=== PATIENT | male | born 1945 | race Caucasian/White ===

== ENCOUNTER 2016-10-16 11:30 | Outpatient (CLI) | payer OTHER ==
--- NOTE | 2016-10-16 13:15 | DIAGNOSTIC IMAGING REPORT ---
PROCEDURE: CT LOW-DOSE LUNG CA SCREENING CLINICAL INDICATION: HX LUNG CA TECHNIQUE: Low-dose helical CT images of the lungs without contrast were obtained and reconstructed at 2.5 mm intervals. MIP reformations in coronal and sagittal planes were created. Radiation dose 1.38 mGy. COMPARISON: Oldest available comparison: Chest x-ray 09/09/2016, 01/20/2016 and 06/07/2009 FINDINGS: NODULES: Location: Right middle lobe, image location: 71, size: 3.5 mm, composition: Ground glass Location: Right lower lobe, image location: 73, size: 5 mm, composition: Ground-glass Location: Right major fissure, image location: 93, size: 4 mm, composition ground-glass OTHER LUNG FINDINGS: Left upper lobectomy. Left basilar and left perihilar patchy alveolar opacities. AIRWAY: Right lower lobe bronchiectasis. There is also bronchial wall thickening suggestive of bronchitis. PLEURA: No effusions, thickening, or pneumothorax. AORTA AND GREAT VESSELS: Normal caliber, mild atherosclerotic calcification. PULMONARY ARTERIES: Normal. . HEART AND PERICARDIUM: Normal size without effusion, thickening. LYMPH NODES: No enlarged nodes visible. Moderate left hilar adenopathy. THORACIC SPINE: No suspicious lesion. Mild degenerative changes. CHEST WALL: Normal. Three small ground-glass right lung nodules VISUALIZED UPPER ABDOMEN: Normal. IMPRESSION: 1. Left upper lobectomy 2. Left basilar patchy densities. Prominent left hilar adenopathy suggests neoplastic changes but pneumonia is not completely excluded. Recommend follow- up CT scan with contrast in 1 month. Category 4B, suspicious. 3. Three small ground-glass right lung nodules, indeterminate. 4. Right lower lobe bronchiectasis and bronchial wall thickening consistent with bronchitis 5. Results discussed with SID Aguirre All CT scans at this facility use dose modulation, iterative reconstruction, and/or weight-based dosing when appropriate to reduce radiation dose to as low as reasonably achievable.
--- NOTE | 2016-10-19 13:10 | DIAGNOSTIC IMAGING REPORT ---
REFERRING PHYSICIAN/PROVIDER: Marty Hui MD CONSULTING DIVORCE MEDIATOR: Sven Mayo MD PROCEDURE PERFORMED: NM CARDIAC STRESS TEST INDICATION: HX LUNG CA. CHEST PAIN Lexiscan PORTION: Please see Dr. Potter's dictation Single day SESTAMIBI INTERPRETATION: 11 mCi of technetium 99m labeled sestamibi was injected at rest with SPECT tomography performed. Some time later the patient underwent Lexiscan stress with 32 mCi of technetium 99m labeled sestamibi injected 20 seconds after the injection of Lexiscan with SPECT tomography performed. Rest stress images were then compared. The LV was seen to be normal in size. The LV was stressed exhibits no ischemic defects. There was evidence of diaphragmatic attenuation noted. Computer assessed ejection fraction was 71%. End-systolic volume was 18 ml as and the end-systolic end-diastolic volume was 61 ml as. T.i.d. was calculated at 0.84. IMPRESSION: 1. No evidence for ischemia 2. Normal left ventricular size 3. Normal left ventricular function 4. Low risk study
--- NOTE | 2016-10-19 13:10 | DIAGNOSTIC IMAGING REPORT ---
REFERRING PHYSICIAN/PROVIDER: Marty Hui MD CONSULTING FPGA ENGINEER: Sven Mayo MD PROCEDURE PERFORMED: NM CARDIAC STRESS TEST INDICATION: HX LUNG CA. CHEST PAIN Lexiscan PORTION: Please see Dr. Potter's dictation Single day SESTAMIBI INTERPRETATION: 11 mCi of technetium 99m labeled sestamibi was injected at rest with SPECT tomography performed. Some time later the patient underwent Lexiscan stress with 32 mCi of technetium 99m labeled sestamibi injected 20 seconds after the injection of Lexiscan with SPECT tomography performed. Rest stress images were then compared. The LV was seen to be normal in size. The LV was stressed exhibits no ischemic defects. There was evidence of diaphragmatic attenuation noted. Computer assessed ejection fraction was 71%. End-systolic volume was 18 ml as and the end-systolic end-diastolic volume was 61 ml as. T.i.d. was calculated at 0.84. IMPRESSION: 1. No evidence for ischemia 2. Normal left ventricular size 3. Normal left ventricular function 4. Low risk study
[2016-11-25] MEDS ORDERED: ASPIRIN ADULT L81 M1 PO (16:54)
[2016-11-25] MEDS ORDERED: NEFAZODONE HCL50 MG PO (16:55)
[2016-11-25] MEDS ORDERED: NORTRIPTYLINE H75 MG PO (16:56)
[2016-11-25] MEDS ORDERED: OMEPRAZOLE20 M1 PO (16:56)
[2016-11-25] MEDS ORDERED: OXYCONTIN80 MG PO (16:57)
[2016-11-25] MEDS ORDERED: PERCOCET1 TA4 PO (16:57)
[2016-11-25] MEDS ORDERED: TAMSULOSIN HCL0.4 MG PO (16:58)
[2016-11-25] MEDS ORDERED: VENTOLIN HFA IN (16:59)
[2016-11-25] MEDS ORDERED: TUDORZA PR400 MG/ACT IN (16:59)
[2016-11-25] MEDS ORDERED: HYDRO PO (17:00)
[2016-11-25] MEDS ORDERED: VYTORIN1 TA1 PO (17:00)
[2016-11-25] MEDS ORDERED: VALSARTAN PO (17:00)
[2016-12-30] MEDS ORDERED: AMLODIPINE BESYL5 MG PO (12:33)
[2016-12-30] MEDS ORDERED: MIRALAX EQUIVAL17 GM PO (12:35)
[2016-12-30] MEDS ORDERED: SENNA-LAX8.6 MG PO (12:36)
[2016-12-30] MEDS ORDERED: SMZ-TMP DS1 TAB PO (12:40)
[2016-12-30] MEDS ORDERED: OXYCODONE HCL E60 MG PO (12:41)
[2016-12-30] MEDS ORDERED: OXYCODONE HCL20 MG PO (12:43)
== END 2016-10-16 23:00 ==
LOC: CT SRH 11:30
PROC: 4A02XM4 Measurement of Cardiac Total Activity, External Approach (ICD-10-PCS; principal; 2016-10-16)
PROC: 3E073KZ Introduction of Other Diagnostic Substance into Coronary Artery, Percutaneous Approach (ICD-10-PCS; principal; 2016-10-16)
DX: R59.0 Localized enlarged lymph nodes (principal); R91.8 Other nonspecific abnormal finding of lung field; Z90.2 Acquired absence of lung [part of]; Z85.118 Personal history of other malignant neoplasm of bronchus and lung; R07.9 Chest pain, unspecified

== ENCOUNTER 2016-11-18 11:42 | Outpatient (CLI) | payer OTHER ==
--- NOTE | 2016-11-18 14:02 | DIAGNOSTIC IMAGING REPORT ---
PROCEDURE: CT THORAX WITH CONTRAST INDICATION: HISTORY OF LUNG CANCER, follow-up low-dose lung cancer screening CT, history of smoking, currently asymptomatic. TECHNIQUE: 125 ml of Isovue 300 was injected intravenously and axial images were obtained of the chest with coronal and sagittal reformations. COMPARISON: 10/16/2016, outside chest x-rays 09/09/2016 and 01/20/2016 FINDINGS: There is an amorphous, slightly heterogeneous soft tissue mass of hilar and peribronchial adenopathy surrounding the left main bronchus. There are multifocal nodular patches of consolidation in the infrahilar left lower lobe. Alveolitis posteriorly has become more extensive compared to the previous study. Multiple semisolid parenchymal nodules in the anterolateral left lower lobe are redemonstrated. There has been development of patchy nodular density at the right posterior costophrenic angle. There are at least two other small ground-glass nodules in the right lower lobe. Mild subpleural alveolitis in the posterior right middle lobe has also developed. Moderate upper lobe emphysematous changes. There are perihilar surgical changes from a left upper lobectomy. Small AP window lymph nodes and a small prevascular lymph node is unchanged in size. No supraclavicular or axillary adenopathy. There is trace left posteromedial pleural thickening/pleural effusion which has developed since the previous study. There is a 14 mm sclerotic focus in the right fifth posteromedial rib arc. No lytic lesions are visible. The upper abdomen demonstrates numerous ill-defined rounded hypodensities in the liver, the largest in the medial left lobe just above the gallbladder measuring 2.2 cm. The kidneys demonstrate multiple cysts bilaterally. No other suspicious lesions or adenopathy visible. IMPRESSION: 1. Findings consistent with either recurrent or new primary neoplasm in the left hilar region status post left upper lobectomy. 2. There is likely postobstructive pneumonitis in the left lower lobe. Trace effusion may be post infectious/reactive or neoplastic. 3. There are a few solid soft tissue nodules in the left lower lobe, and a new solid nodule in the right posterior lower lobe. Hypodensities throughout the liver. Findings all consistent with metastatic disease. 4. Confluent adenopathy extends into the subcarinal region and there are moderately prominent pretracheal and AP window lymph nodes. 5. Sclerotic focus in the posteromedial right fifth rib, potentially metastasis. 6. Tissue sampling to document/identify the neoplastic process could be done by bronchoscopy or liver biopsy. 7. Discussed with Dr. Geller.
[2016-11-25] MEDS ORDERED: ASPIRIN ADULT L81 M1 PO (16:54)
[2016-11-25] MEDS ORDERED: NEFAZODONE HCL50 MG PO (16:55)
[2016-11-25] MEDS ORDERED: NORTRIPTYLINE H75 MG PO (16:56)
[2016-11-25] MEDS ORDERED: OMEPRAZOLE20 M1 PO (16:56)
[2016-11-25] MEDS ORDERED: PERCOCET1 TA4 PO (16:57)
[2016-11-25] MEDS ORDERED: OXYCONTIN80 MG PO (16:57)
[2016-11-25] MEDS ORDERED: TAMSULOSIN HCL0.4 MG PO (16:58)
[2016-11-25] MEDS ORDERED: VENTOLIN HFA IN (16:59)
[2016-11-25] MEDS ORDERED: TUDORZA PR400 MG/ACT IN (16:59)
[2016-11-25] MEDS ORDERED: VYTORIN1 TA1 PO (17:00)
[2016-11-25] MEDS ORDERED: HYDRO PO (17:00)
[2016-11-25] MEDS ORDERED: VALSARTAN PO (17:00)
[2016-12-30] MEDS ORDERED: AMLODIPINE BESYL5 MG PO (12:33)
[2016-12-30] MEDS ORDERED: MIRALAX EQUIVAL17 GM PO (12:35)
[2016-12-30] MEDS ORDERED: SENNA-LAX8.6 MG PO (12:36)
[2016-12-30] MEDS ORDERED: SMZ-TMP DS1 TAB PO (12:40)
[2016-12-30] MEDS ORDERED: OXYCODONE HCL E60 MG PO (12:41)
[2016-12-30] MEDS ORDERED: OXYCODONE HCL20 MG PO (12:43)
== END 2016-11-18 23:00 ==
LOC: CT SRH 11:42
DX: Z85.118 Personal history of other malignant neoplasm of bronchus and lung (principal)

== ENCOUNTER 2016-11-26 12:48 | Day surgery (SDC) | payer OTHER ==
[~2016-11-26] VITALS: Ht 177.8 cm; Wt 90.3 kg
[~2016-11-26 12:48] MED LIST: ASPIRIN ADULT L81 M1 PO; HYDRO PO; NEFAZODONE HCL50 MG PO; NORTRIPTYLINE H75 MG PO; OMEPRAZOLE20 M1 PO; OXYCONTIN80 MG PO; PERCOCET1 TA4 PO; TAMSULOSIN HCL0.4 MG PO; TUDORZA PR400 MG/ACT IN; VALSARTAN PO; VENTOLIN HFA IN; VYTORIN1 TA1 PO
--- NOTE | 2016-11-26 13:10 | NUR ---
PT IDENTIFIED & HERE WITH HIS WANDER FOR HIS PROCEDURE TODAY, WANDER WILL BE HIS HEALTH AIDE HOME POST OP. CONSENTS SIGNED, DATED & TIMED PREOP & SAFETY INFO REVIEWED WITH PT & UNDERSTANDING NOTED. LABS & EKG COMPLETED SIDE RAILS UP & PT READY FOR PREOP HOLDING.
--- NOTE | 2016-11-26 14:40 | NUR ---
IV ACCESS STARTED WITHOUT COMPLICATIONS IN PTS LFA AREA. 20G SIDE RAILS UP, PT READY FOR PROCEDURE
--- NOTE | 2016-11-26 16:06 | Provider's Discharge Care Plan ---
Problem, Goal, Plan Problem List 1. Lung mass
--- NOTE | 2016-11-26 16:06 | Provider's Discharge Care Plan ---
Problem, Goal, Plan Problem List 1. Lung mass
--- NOTE | 2016-11-26 16:48 | NUR ---
PT IS AWAKE AND ALERT.PT DENIES PAIN. MILD NAUSEA IMPROVED (PER PT RESPONSE) AFTER ZOFRAN 4MG IV. VSS. PT STATES HE IS WARM AND COMFORTABLE. MD TALKED TO PT IN PACU.
[2016-11-26 17:00] VITALS: BP 126/70
[2016-11-26 17:13] VITALS: BP 123/64
[2016-11-26 17:30] VITALS: BP 132/75
--- NOTE | 2016-11-26 17:58 | NUR ---
NO C/O DYSPNEA OR DISCOMFORT. RA SATS 96-97%, EATING DRINKING WITHOUT PROBLEM. AMBULATES AND VOIDS WITHOUT PROBLEM. D/C INSTRUCTIONS GONE OVER WITH PATIENT AND HIS . ESCORTED OUT WITH HIS , WHO WILL DRIVE HIM HOME.
--- NOTE | 2016-11-26 19:23 | OPERATIVE REPORT ---
DATE OF SURGERY: 11/26/2016 SURGEON: Joseph Zhao MD PREOPERATIVE DIAGNOSIS: 1. Left hilar lung mass POSTOPERATIVE DIAGNOSIS: 1. Left hilar lung mass PROCEDURE PERFORMED: 1. Bronchoscopy with biopsies and transbronchial fine needle aspiration biopsy ANESTHESIA: General. COMPLICATIONS: No intraoperative complications were encountered. INDICATIONS: The patient is a 71-year-old man with a previous left upper lobe lung carcinoma in 2004. He presented with evolving CT scan changes and left hilar adenopathy and post-obstructive pneumonitis. SURGICAL TECHNIQUE: The patient was taken to the endoscopy suite, where a general anesthetic was administered and the patient placed in the supine position. An endotracheal tube with adaptor was placed. The Olympus bronchoscope was inserted and initially there were some thick mucoid plugs, which had to be rinsed out with normal saline and cleared before visualization could be obtained. The holli appeared reasonably sharp, but there appeared to be a small amount of bulging in the membranous portion posteriorly. The left main stem bronchus was entered and the upper lobe was occluded by previous surgery. The lower lobe demonstrated extrinsic occlusion with some abnormal-appearing tissue at its origin. This appeared to be consistent with a suspected lung neoplasm. The bronchoscope was passed into part of the lower lobe and this area appeared to be more clear, but there was pocketing of mucus, which had to be rinsed out. The biopsy forceps was inserted and used to take multiple biopsies from the stenotic area. Note that rinsings and cytologies were first obtained at the start of the procedure, sending off some of the pooled mucus from the same regions. After completing biopsies the area was observed and rinsed and found to be hemostatic. On withdrawal, a transbronchial biopsy needle was inserted and poked through the membranous portion of the holli. Specimen was obtained and this was prepped in a thin smear and cytofixative. There was no ongoing bleeding at any site. The patient left in stable condition.
[2016-12-30] MEDS ORDERED: AMLODIPINE BESYL5 MG PO (12:33)
[2016-12-30] MEDS ORDERED: MIRALAX EQUIVAL17 GM PO (12:35)
[2016-12-30] MEDS ORDERED: SENNA-LAX8.6 MG PO (12:36)
[2016-12-30] MEDS ORDERED: SMZ-TMP DS1 TAB PO (12:40)
[2016-12-30] MEDS ORDERED: OXYCODONE HCL E60 MG PO (12:41)
[2016-12-30] MEDS ORDERED: OXYCODONE HCL20 MG PO (12:43)
== END 2016-11-26 18:00 | disposition home or self-care (01) ==
LOC: OR SRH 12:48 → SCU SRH 12:49 → OR SRH 14:45
PROVIDERS: Surgery
PROC: 0BB78ZX Excision of Left Main Bronchus, Via Natural or Artificial Opening Endoscopic, Diagnostic (ICD-10-PCS; principal; 2016-11-26 14:45)
PROC: 0BB28ZX Excision of Carina, Via Natural or Artificial Opening Endoscopic, Diagnostic (ICD-10-PCS; principal; 2016-11-26 14:45)
PROC: 0B9J8ZX Drainage of Left Lower Lung Lobe, Via Natural or Artificial Opening Endoscopic, Diagnostic (ICD-10-PCS; principal; 2016-11-26 14:45)
PROC: 0BBB8ZX Excision of Left Lower Lobe Bronchus, Via Natural or Artificial Opening Endoscopic, Diagnostic (ICD-10-PCS; principal; 2016-11-26 14:45)
DX: C34.02 Malignant neoplasm of left main bronchus (principal); J44.9 Chronic obstructive pulmonary disease, unspecified; Z87.891 Personal history of nicotine dependence
CPT/HCPCS: 29229; 29240; 50004; 60001; 70002; 80102; 81673; 82567; 90047; 90074; 95059

== ENCOUNTER 2016-12-10 09:00 | Outpatient (CLI) | payer OTHER ==
--- NOTE | 2016-12-10 10:55 | DIAGNOSTIC IMAGING REPORT ---
PROCEDURE: XR CHEST 1 VIEW INDICATION: PICC PLACEMENT, PT. IN RESPIRATORY THERAPY TECHNIQUE: Portable AP view 10:30 a.m. COMPARISON: Chest 09/09/2016 FINDINGS: PICC line is in good position. Tip is in the SVC. There is diffuse infiltrate throughout the left lung. Right lung is clear. Heart size is normal. IMPRESSION: 1. PICC line in good position. Results called to [id number]. 2. Diffuse infiltrate throughout the left lung.
[2016-12-30] MEDS ORDERED: AMLODIPINE BESYL5 MG PO (12:33)
[2016-12-30] MEDS ORDERED: MIRALAX EQUIVAL17 GM PO (12:35)
[2016-12-30] MEDS ORDERED: SENNA-LAX8.6 MG PO (12:36)
[2016-12-30] MEDS ORDERED: SMZ-TMP DS1 TAB PO (12:40)
[2016-12-30] MEDS ORDERED: OXYCODONE HCL E60 MG PO (12:41)
[2016-12-30] MEDS ORDERED: OXYCODONE HCL20 MG PO (12:43)
== END 2016-12-10 23:00 | disposition home or self-care (01) ==
LOC: SDP SRH 09:00
PROC: 02HV33Z Insertion of Infusion Device into Superior Vena Cava, Percutaneous Approach (ICD-10-PCS; principal; 2016-12-10)
PROC: B548ZZA Ultrasonography of Superior Vena Cava, Guidance (ICD-10-PCS; principal; 2016-12-10)
DX: C34.02 Malignant neoplasm of left main bronchus (principal); Z87.891 Personal history of nicotine dependence

== ENCOUNTER 2016-12-31 12:19 | Day surgery (SDC) | payer OTHER ==
[~2016-12-31] VITALS: Ht 177.8 cm; Wt 85.5 kg
[~2016-12-31 12:19] MED LIST changes: +AMLODIPINE BESYL5 MG PO; +MIRALAX EQUIVAL17 GM PO; +OXYCODONE HCL E60 MG PO; +OXYCODONE HCL20 MG PO; +SENNA-LAX8.6 MG PO; +SMZ-TMP DS1 TAB PO
--- NOTE | 2016-12-31 16:34 | Provider's Discharge Care Plan ---
Problem, Goal, Plan Problem List 1. Lung mass
--- NOTE | 2016-12-31 16:34 | Provider's Discharge Care Plan ---
Problem, Goal, Plan Problem List 1. Lung mass
--- NOTE | 2016-12-31 16:52 | DIAGNOSTIC IMAGING REPORT ---
PROCEDURE: XR PICC/PORT PLACEMENT W/C-ARM INDICATION: LUNG CA - METASTATIC TECHNIQUE: C-arm fluoroscopy provided to Dr. Zhao for left subclavian Port-A-Cath placement. Fluoroscopy time 31-second, 6.99 mGy). COMPARISON: Compared to chest x-ray on 12/10/2016. FINDINGS: AP c-arm view. Left subclavian Port-A-Cath ends in superior vena cava. IMPRESSION: 1. C-arm fluoroscopy for placement of left subclavian Port-A-Cath (performed by Dr. Zhao).
[2016-12-31 17:00] VITALS: BP 159/88
--- NOTE | 2016-12-31 17:13 | DIAGNOSTIC IMAGING REPORT ---
PROCEDURE: XR CHEST 1 VIEW INDICATION: LUNG CA - METASTATIC TECHNIQUE: Portable AP view 04:47 p.m. COMPARISON: Chest 12/10 16 and 09/09/2016 FINDINGS: There has been placed on the left. Tip is in the superior vena cava. No pneumothorax. There has been a marked decrease in the left pulmonary infiltrate. IMPRESSION: 1. Port in good position in the superior vena cava. 2. Decrease in left pulmonary infiltrate.
[2016-12-31 17:15] VITALS: BP 157/83
[2016-12-31 17:30] VITALS: BP 150/83
[2016-12-31 17:45] VITALS: BP 150/79
--- NOTE | 2017-01-05 10:15 | OPERATIVE REPORT ---
DATE OF SURGERY: 12/31/2016 SURGEON: Joseph Zhao MD PREOPERATIVE DIAGNOSIS: 1. Intravenous access need POSTOPERATIVE DIAGNOSIS: 1. Intravenous access need PROCEDURE PERFORMED: 1. Left subclavian infusion port placement ANESTHESIA: Total IV general. INDICATIONS: The patient is a man requiring an IV infusion port for parenteral access for treatment of lung cancer. SURGICAL TECHNIQUE: The patient was taken to the operating room, where IV sedation was administered and the patient was placed in steep Trendelenburg position with the head turned to the right side. The left anterior chest and neck were sterilely prepped and draped and the patient received IV antibiotics. A local anesthetic of 1% with epinephrine was infiltrated and the left subclavian vein accessed with the 18-gauge thin- walled needle. Seldinger technique was used to place the catheter in the superior vena cava. A previous scar was used to open the chest in an oblique fashion and a subcutaneous pocket created inferior to this. The catheter was tunneled into this area, cut to the right length and connected to the port, which was implanted. A Liu needle was used to check the port, which both blaire and flushed well. The wound was closed with interrupted deep dermal and running subcuticular 4-0 Vicryl suture. Steri-Strips and dressings were applied. The patient left in stable condition.
== END 2016-12-31 18:20 | disposition home or self-care (01) ==
LOC: OR SRH 12:19 → SCU SRH 12:19 → OR SRH 14:30
PROVIDERS: Surgery
PROC: 0JH63XZ Insertion of Tunneled Vascular Access Device into Chest Subcutaneous Tissue and Fascia, Percutaneous Approach (ICD-10-PCS; principal; 2016-12-31 14:30)
PROC: 02HV33Z Insertion of Infusion Device into Superior Vena Cava, Percutaneous Approach (ICD-10-PCS; principal; 2016-12-31 14:30)
DX: C34.12 Malignant neoplasm of upper lobe, left bronchus or lung (principal)

== ENCOUNTER 2017-01-04 12:11 | Outpatient (CLI) | payer OTHER ==
--- NOTE | 2017-01-04 14:39 | DIAGNOSTIC IMAGING REPORT ---
PROCEDURE: MR BRAIN W/WO CONTRAST INDICATION: LUNG CA TECHNIQUE: Multiplanar multisequence MRI imaging of the brain without contrast. Post administration of 8 ml (half-dose) ProHance gadolinium based IV contrast, three plane T1 fat sat sequences were obtained. COMPARISON: None. FINDINGS: The midline structures are normally formed. Mild diffuse cerebral and cerebellar cortical atrophy. This results in prominence of the sulci. Ventricular system is normal. Basal cisterns are patent. Flow voids in the major intracranial vessels are normal. No vascular malformations seen post contrast. There are bilateral basal ganglia calcifications seen as punctate blooming artifacts on gradient imaging. Signal throughout the gooden and white matter demonstrates occasional scattered punctate FLAIR hyperintensities in the stokes radiata bilaterally. No restricted diffusion to suggest acute ischemia. No evidence of acute or chronic intraparenchymal or extra-axial hemorrhage. No mass, mass effect, or midline shift. No suspicious enhancement. Focal T1 and T2 non-enhancing hyperintensity centrally within the clivus measuring 9 mm. There is a T1 and T2 probably non-enhancing hyperintense nodule within the left frontal sinus. Normal globes, orbits, and extracranial soft tissues. IMPRESSION: 1. Mild age related involutional changes and occasional, minimal, nonspecific white matter hyperintensities. 2. No evidence of metastatic disease in the brain. 3. Probable mucous retention cyst in the left frontal sinus. 4. Probable focal fat deposition within the clivus.
== END 2017-01-04 23:00 ==
LOC: MRI SRH 12:11
DX: C34.90 Malignant neoplasm of unspecified part of unspecified bronchus or lung (principal)